=== PATIENT | female | born 1955 | race Caucasian/White ===

== ENCOUNTER → 2017-07-19 09:36 | Outpatient (CLI) | payer OTHER, SELFPAY ==
--- NOTE | 2017-07-19 09:37 | US_ITS ---
STUDY: ABDOMINAL ULTRASOUND REASON FOR EXAM: Female, 61 years old. Chronic right upper quadrant pain. Elevated liver function tests. TECHNIQUE: Transabdominal ultrasound was performed with real-time and static grewal scale imaging. TECHNICAL QUALITY: Adequate. COMPARISON: None. FINDINGS: Liver: The liver measures 17.9 cm. There is increased echogenicity consistent with fatty infiltration. The bile ducts are within normal limits. There is hepatic color flow. The direction of portal flow is hepatopetal. There is no demonstrated mass lesion. Portal vein measurement: Gallbladder: The patient is status post cholecystectomy. Common Bile Duct (C.B.D.): The common bile duct measures 5.5 mm. Pancreas: Normal size of the head, body and tail of the pancreas. There is normal echogenicity of the pancreas. There is no demonstrated pancreatic mass or cyst. Spleen: Normal size of the spleen. The spleen measures 9.1 cm x 4.9 cm x 3.9 cm. Right Kidney: Normal size of the right kidney. The right kidney measures 9.5 cm x 4.8 x 4.3 cm. Normal renal cortex. The right cortex measures 1.4 cm. There is no demonstrated renal mass or cyst. There is no right hydronephrosis. Left Kidney: Normal size of the left kidney. The left kidney measures 9.4 cm x 4.3 cm x 5.7 cm. Normal renal cortex. The left cortex measures 1.2 cm. There is no demonstrated renal mass or cyst. There is no left hydronephrosis. There are 2 nonobstructive left renal calculi measuring 4 mm. Aorta: Unremarkable. I.V.C.: The IVC is patent. There is no ascites. US/Abdomen Complete IMPRESSION: Fatty infiltration of the liver. Nonobstructive left intrarenal calculi. Electronically Signed: Francis Batista MD at 14:41 EST Tel [phone], Service support ,
== END ==
PROVIDERS: Family Provider Nurse Practitioner; PCP Nurse Practitioner; Visit Provider Nurse Practitioner
DX: R74.8 Abnormal levels of other serum enzymes (principal)
CPT/HCPCS: 76700

== ENCOUNTER 2017-09-05 13:21 | Emergency (ER) | payer OTHER, SELFPAY ==
[2017-09-05 13:22] VITALS: BP 142/74; PULSE 104; RESP 20; TEMP 36.9; O2SAT 99; BMI 27.8
--- NOTE | 2017-09-05 13:43 | CT_ITS ---
STUDY: CT ABDOMEN AND PELVIS WITHOUT CONTRAST REASON FOR EXAM: Female, 62 years old. Left flank pain. History of kidney stones. RADIATION DOSAGE (If Supplied By Facility): CTDIvol = ( 10.44 ) mGy, DLP = ( 487.75 ) mGycm TECHNIQUE: Transaxial images were obtained from the dome of the diaphragm to the symphysis pubis without oral contrast, and without intravenous contrast. Sagittal and coronal images were reconstructed. Individualized dose optimization techniques were used for this CT. COMPARISON: None. FINDINGS: The visualized lung bases are unremarkable. Coronary artery calcification. There is decreased attenuation of the liver consistent with steatosis. There are surgical clips in the gallbladder fossa consistent with a prior cholecystectomy. The common bile duct measures 1.3 cm. This may be related to the postcholecystectomy state. Normal spleen. Normal pancreas. Normal bilateral adrenal glands. Normal right kidney. Normal left kidney. Normal visualized stomach. Normal small intestine. There are multiple colonic diverticula consistent with diverticulosis. Scattered diverticula in the right hemicolon. The appendix is visualized and appears normal. There is diffuse atherosclerotic calcification of the abdominal aorta, without a demonstrated aneurysm. Normal inferior vena cava. Normal retroperitoneum. Normal urinary bladder. There is absence of the uterus consistent with a prior hysterectomy. There is a small umbilical hernia containing fat. There are degenerative changes of the visualized lumbar spine. CT/Abdomen/Pelvis without Cont IMPRESSION: Fatty infiltration of the liver. Mild dilatation of the common bile duct. Sigmoid diverticulosis. Scattered diverticula in the right hemicolon. Electronically Signed: Francis Batista MD at 14:58 EDT Tel [phone], Service support ,
[2017-09-05] MEDS: Ondansetron 4 MG/2 ML Vial IV (13:48)
[2017-09-05] MEDS: Morphine 4 MG/ML Syringe IV ×2 (13:48→15:01)
[2017-09-05 13:52] LABS: Mucous, Urine 0 SEEN /hpf (<or=2+); White Blood Cells 0 SEEN /hpf (0-5)
[2017-09-05 13:55] LABS: Absolute Neutrophil Count 8.5 X10^3/uL (2.0-7.7); Basophil# 0.06 X10^3/uL; Basophil% 0.4 % (0-1); Eosinophil# 0.17 X10^3/uL; Eosinophils% 1.3 % (0-5); Hematocrit 45.6 % (37-47); Hemoglobin 15.1 g/dl (12.0-15.0); Lymphocyte % 26.9 % (19-41); Mean Corp Hgb Conc 33.1 g/gl (32-36); Mean Corpuscular Hgb 30.1 pg (27.0-32.0); Mean Corpuscular Volume 90.8 fL (81-99); Mean Platelet Vol. 9.6 fl (6.2-12.0); Monocyte% 7.5 % (0-10); Neutrophil % 63.7 % (47-70); POSITIVE COUNT NO; POSITIVE DIFFERENTIAL NO; POSITIVE MORPHOLOGY NO; Platelet Count 367 K/mm3 (150-450); RBC Distribution Width CV 14.2 % (11.6-14.6); RBC Distribution Width SD 46.5 fl (35.1-43.9); Red Blood Count 5.02 M/mm3 (4.2-5.4); White Blood Count 13.4 K/mm3 (4.4-11.0)
[2017-09-05 13:59] LABS: Color, Urine Yellow (Yellow); Glucose, Dipstick Normal (Normal); Ketone-Dipstick Negative (Negative); Leukocyte Esterase-Dipstick Negative /ul (Negative); Nitrite-Dipstick Negative (Negative); Occult Blood-Urine 250 /ul (Negative); Protein-Dipstick Negative (Negative); Urine Bilirubin Dipstick Negative (Negative); Urine Clarity Sl. Cloudy (Clear); Urine Urobilinogen Normal (Normal)
[2017-09-05 14:10] LABS: Bacteria RARE /hpf (None Seen); Red Blood Cells-Urine > 100 SEEN /hpf (0-5); Squamous Epithelial Cells - UA 0-5 SEEN /hpf (5-10)
[2017-09-05 14:14] LABS: Anion Gap 10 (5-15); BUN 8 mg/dL (7-18); BUN/Creat Ratio 9.2 RATIO (10-20); Calcium,Total 9.5 mg/dL (8.5-10.1); Chloride 99 mmol/L (98-107); Creatinine, Serum 0.87 mg/dL (0.55-1.02); EST Glomerular Filtration Rate 70 mL/min (>60); Est Glom Filt Rate - Afr Amer 85 mL/min (>60); Glucose 95 mg/dL (74-106); Potassium 3.6 mmol/L (3.5-5.1); Sodium Level 135 mmol/L (136-145)
--- NOTE | 2017-09-05 15:04 | CT_ITS ---
STUDY: CT ABDOMEN WITH CONTRAST REASON FOR EXAM: Female, 62 years old. Questionable renal infarct. RADIATION DOSAGE (If Supplied By Facility): CTDIvol = ( 20.00 ) mGy, DLP = ( 1663.63 ) mGycm TECHNIQUE: Transaxial images were obtained post I.V. administration of 100 ml of Isovue 300 contrast, and without oral contrast. Sagittal and coronal images were reconstructed. Individualized dose optimization techniques were used for this CT. COMPARISON: Comparison is made with prior study done earlier in the day. FINDINGS: The visualized lung bases are unremarkable. The visualized portions of the heart are within normal limits. There is hepatomegaly with diffuse hepatic enlargement. There are surgical clips in the gallbladder fossa consistent with a prior cholecystectomy. The common bile duct measures 1.2 cm in transverse dimension. Normal spleen. Normal pancreas. Normal bilateral adrenal glands. Normal right kidney. Normal left kidney. Normal visualized stomach. Normal small intestine. Normal colon. The appendix is visualized and appears normal. There is diffuse atherosclerotic calcification of the abdominal aorta, without a demonstrated aneurysm. Normal inferior vena cava. There is borderline retroperitoneal lymphadenopathy with enlarged nodes no greater than 10mm in the short axis diameter. Normal abdominal wall. There are diffuse degenerative changes of the visualized lumbar spine. CT/Abdomen WITH IV Contrast IMPRESSION: Fatty infiltration of the liver. The kidneys are unremarkable. Electronically Signed: Francis Batista MD at 15:58 EDT Tel [phone], Service support ,
[2017-09-05 15:47] VITALS: BP 131/66; PULSE 96; RESP 16; O2SAT 97
--- NOTE | 2017-09-05 16:20 | ED.VISSUMM ---
- ER Visit Summary Date of Service: 09/05/17 Chief Complaint: Flank pain and hematuria History of Present Illness: The patient is a 62 F presenting for evaluation secondary to flank pain and hematuria. Patient states she does have an underlying history of kidney stones. Patient states that 2 months ago she started having left-sided flank pain. Patient states that it is a intermittent sharp stabbing pain in her left flank going into her left groin worse with some movement and has been associated with hematuria. Patient states that she had diarrhea associated with it last night. She denies any presence of fevers. Patient states that she did have an outpatient ultrasound recently that told her that she had 2 kidney stones on the left side that she was passing. Patient states that her pain simply is not resolved, and she is wishing for some sort of intervention at this point. She denies any radiation to her legs. She denies any bowel or bladder incontinence. Review of systems otherwise negative. Physical Examination: Vital signs within normal limits other than heart rate of 104. Uncomfortable female otherwise not in physiologic distress. Moist mucous membranes. No JVD. Heart tachycardic and regular. Lung sounds clear. Abdomen tender in the left lower quadrant without guarding or rebound tenderness. No palpable masses. Left-sided CVA tenderness to percussion no evidence of overlying vesicular rash. Remainder physical otherwise unremarkable. Test Results: CBC shows leukocytosis 13, chemistry shows normal renal function, urinalysis shows greater than 100 red blood cells without evidence of pyuria, crystals. CT abdomen and pelvis without contrast shows no acute pathology. CT abdomen with contrast shows normal blood flow to the kidneys and possible retroperitoneal lymphadenopathy. Emergency Department Course and Treatment: Patient presented secondary to flank pain and history of kidney stones in the past. She was administered Toradol morphine and Zofran. She continued to have pain. Initial workup including noncontrast CT showed no evidence of stones but did show evidence of greater than 100 red cells. Patient was significantly uncomfortable, so there was at least some concern for the possibility of a renal infarction. CT abdomen with IV contrast was performed and showed only evidence that the patient has mild lymphadenopathy in the retroperitoneum. I discussed patient's case with Dr. Marin. He recommended outpatient follow-up for the patient as she will require cystoscopy. Patient will be discharged with a short course of Percocet. Disposition: Discharge Impression: 1. Hematuria 2. Left flank pain This note was generated with Luis dictation software. It may contain incorrect words, spelling, and punctuation that were not noted in review of the chart prior to signing ED Disposition - Plan for ED Patient: Chief Complaint: Flank Pain Diagnosis: Flank pain, Hematuria Instructions: ED Flank Pain Uncertain Cause Prescriptions: Oxycodone HCl/Acetaminophen [Percocet 5/325] 1 tab PO Q6H PRN PRN 3 Days #12 tab PRN Reason: Pain Referrals: Jaime Marin MD [STAFF PHYSICIAN] - 3-5 Days
[2017-09-05 16:34] VITALS: BP 111/75; PULSE 71; RESP 16; O2SAT 98
== END 2017-09-05 16:35 | disposition home or self-care (01) ==
PROVIDERS: Emergency Provider Emergency Medicine; Family Provider Nurse Practitioner; PCP Nurse Practitioner
DX: R31.9 Hematuria, unspecified (principal); R10.32 Left lower quadrant pain; R11.2 Nausea with vomiting, unspecified; R19.7 Diarrhea, unspecified; R59.0 Localized enlarged lymph nodes; K21.9 Gastro-esophageal reflux disease without esophagitis; F32.9 Major depressive disorder, single episode, unspecified; F41.9 Anxiety disorder, unspecified; Z87.442 Personal history of urinary calculi; Z79.899 Other long term (current) drug therapy; Z72.0 Tobacco use
CPT/HCPCS: 74160; 74176; 80048; 81001; 85025; 96374; 96375; 99282; Q9967; A4216; J2405

== ENCOUNTER → 2018-09-13 | Outpatient (CLI) | payer OTHER, SELFPAY ==
[2018-09-13 10:35] LABS: Amphetamine Urine VISTA NEGATIVE (<1000 ng/mL); Barbiturate Urine VISTA NEGATIVE (< 200 ng/mL); Benzodiazepine Urine VISTA NEGATIVE (< 200 ng/mL); Cocaine Urine VISTA NEGATIVE (< 300 ng/mL); Ecstacy Urine VISTA NEGATIVE (< 500 ng/mL); Methadone Urine VISTA NEGATIVE (< 300 ng/mL); PCP Urine VISTA NEGATIVE (< 25 ng/mL); THC Urine VISTA NEGATIVE (< 50 ng/mL); Vista UDS pH Range 7
== END | disposition home or self-care (01) ==
PROVIDERS: Referring Provider Anesthesiology Pain Medicine; Visit Provider Anesthesiology Pain Medicine
DX: F11.20 Opioid dependence, uncomplicated (principal)
CPT/HCPCS: 80307

== ENCOUNTER → 2018-09-17 | Outpatient (CLI) | payer MEDICAID, SELFPAY ==
[2018-09-17 08:22] VITALS: BMI 24.9
[2018-09-17 12:18] LABS: Absolute Neutrophil Count 8.8 X10^3/uL (2.0-7.7); Basophil# 0.05 X10^3/uL; Basophil% 0.4 % (0-1); Eosinophil# 0.26 X10^3/uL; Eosinophils% 2.1 % (0-5); Hematocrit 47.4 % (37-47); Hemoglobin 15.5 g/dl (12.0-15.0); Lymphocyte % 20.5 % (19-41); Mean Corp Hgb Conc 32.7 g/gl (32-36); Mean Corpuscular Hgb 31.6 pg (27.0-32.0); Mean Corpuscular Volume 96.5 fL (81-99); Mean Platelet Vol. 11.1 fl (6.2-12.0); Monocyte# 0.61 X10^3/uL; Neutrophil # 8.75 X10^3/uL (2.7-7.7); Neutrophil % 71.8 % (47-70); Platelet Count 257 K/mm3 (150-450); RBC Distribution Width SD 48.4 fl (35.1-43.9); Red Blood Count 4.91 M/mm3 (4.2-5.4); White Blood Count 12.2 K/mm3 (4.4-11.0)
[2018-09-17 12:23] LABS: POSITIVE COUNT NO; POSITIVE DIFFERENTIAL NO; POSITIVE MORPHOLOGY NO
[2018-09-17 12:50] LABS: AST(SGOT) 30 U/L (15-37); Alanine Aminotransfer ALT/SGPT 39 U/L (13-56); Albumin, Serum 3.9 g/dL (3.2-5.0); Alkaline Phosphatase 144 U/L (45-117); Anion Gap 9 (5-15); BUN 16 mg/dL (7-18); BUN/Creat Ratio 18.1 RATIO (10-20); Calcium,Total 9.4 mg/dL (8.5-10.1); Chloride 108 mmol/L (98-107); Creatinine, Serum 0.89 mg/dL (0.55-1.02); EST Glomerular Filtration Rate 68 mL/min (>60); Est Glom Filt Rate - Afr Amer 83 mL/min (>60); Globulin 3.8 g/dL (2.2-4.2); Glucose 84 mg/dL (74-106); Potassium 4.5 mmol/L (3.5-5.1); Protein, Total 7.7 g/dL (6.4-8.2); Sodium Level 142 mmol/L (136-145)
== END | disposition home or self-care (01) ==
LOC: BIMLAB 08:43
PROVIDERS: PCP Internal Medicine; Visit Provider Internal Medicine
DX: K21.9 Gastro-esophageal reflux disease without esophagitis (principal); R03.0 Elevated blood-pressure reading, without diagnosis of hypertension; L65.9 Nonscarring hair loss, unspecified
CPT/HCPCS: 36415; 80053; 84443; 85025

== ENCOUNTER 2019-04-28 12:44 | Inpatient (IN) | payer OTHER, SELFPAY ==
[2018-11-29 16:04] VITALS: BMI 24.9
[2019-04-28] VITALS (10 sets, daily range): BP systolic 98–143; BP diastolic 47–89; PULSE 98–134; RESP 17–20; TEMP 36.8–37.3; O2SAT 96–100; BMI 24.0; BMI 24.7
--- NOTE | 2019-04-28 13:32 | RAD_ITS ---
STUDY: X-RAY CHEST REASON FOR EXAM: Female, 63 years old. Cough x 2 weeks. TECHNIQUE: PA and lateral views of the chest. COMPARISON: None. FINDINGS: Subsegmental density of atelectasis or infection seen in the posterior medial left lung base. The right lung is clear and moderately expanded. There is no demonstrated pleural abnormality. Normal size heart. Normal mediastinum and serafin. Normal visualized pulmonary arteries. There is atherosclerotic calcification of the aortic arch. There are multilevel degenerative changes of the visualized thoracic spine. 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 Surgical clips consistent with prior cholecystectomy seen in the right upper quadrant of the abdomen. RAD/Chest PA and Lateral IMPRESSION: Subsegmental atelectasis or infection in the posterior medial left base. Electronically Signed: Marcello Garcia MD at 14:49 EST , Service support ,
--- NOTE | 2019-04-28 13:32 | EKG12_ITS ---
Test Reason : COUGH Blood Pressure : / mmHG Vent. Rate : 126 BPM Atrial Rate : 126 BPM P-R Int : 172 ms QRS Dur : 086 ms QT Int : 288 ms P-R-T Axes : 073 023 074 degrees QTc Int : 417 ms Sinus tachycardia Otherwise normal ECG Confirmed by DON DALY, GILMER ([id number]), editorial specialist CARLTON FRANKLIN ([id number]) on 05/01/2019 11:36:23 AM Referred By: Lucy Hendrickson Confirmed By:GILMER OCHOA MD
--- NOTE | 2019-04-28 13:43 | NURSING ---
NO OLD EKGS
[2019-04-28 13:49] LABS: Absolute Lymphocyte Count 3.26 X10^3/uL (0.83-4.51); Basophil# 0.14 X10^3/uL; Basophil% 0.6 % (0-1); Eosinophil# 0.08 X10^3/uL; Eosinophils% 0.3 % (0-5); Hemoglobin 14.7 g/dL (12.0-15.0); Lymphocyte # 3.26 X10^3/ul (4.0); Lymphocyte % 13.4 % (19-41); Mean Corp Hgb Conc 34.2 g/dL (32-36); Mean Corpuscular Hgb 31.3 pg (27.0-32.0); Mean Corpuscular Volume 91.7 fL (81-99); Mean Platelet Vol. 9.4 fl (6.2-12.0); Monocyte# 1.77 X10^3/uL; Monocyte% 7.3 % (0-10); NRBC Flagged by Analyzer 0 % (0-5); Neutrophil # 18.96 X10^3/uL (2.7-7.7); Neutrophil % 77.8 % (47-70); POSITIVE DIFFERENTIAL YES; Platelet Count 379 K/mm3 (150-450); RBC Distribution Width CV 12.5 % (11.6-14.6); RBC Distribution Width SD 41.6 fl (35.1-43.9); Red Blood Count 4.69 M/mm3 (4.2-5.4); White Blood Count 24.4 K/mm3 (4.4-11.0)
[2019-04-28 13:53] LABS: Differential Indicated SCAN CRITERIA MET
[2019-04-28 13:59] LABS: International Normalized Ratio 1.1; Partial Thromboplast Time 31.5 Seconds (24.1-36.2); Prothrombin Time (Protime)PT. 13.8 SECONDS (11.7-14.9)
[2019-04-28 14:06] LABS: ALB/GLOB Ratio 0.8 RATIO (0.9-2.4); AST(SGOT) 50 U/L (15-37); Alanine Aminotransfer ALT/SGPT 49 U/L (13-56); Albumin, Serum 3.7 g/dL (3.2-5.0); Alkaline Phosphatase 196 U/L (45-117); Anion Gap 9 (5-15); BUN 7 mg/dL (7-18); BUN/Creat Ratio 8.7 RATIO (10-20); Calcium,Total 9.8 mg/dL (8.5-10.1); Chloride 109 mmol/L (98-107); EST Glomerular Filtration Rate 76 mL/min (>60); Est Glom Filt Rate - Afr Amer 92 mL/min (>60); Estimated Creatinine Clearance 62.15 ml/min; Globulin 4.7 g/dL (2.2-4.2); Glucose 110 mg/dL (74-106); Protein, Total 8.4 g/dL (6.4-8.2); Sodium Level 137 mmol/L (136-145)
[2019-04-28 14:15] LABS: Lactic Acid 1.2 mmol/L (0.4-1.9)
[2019-04-28 14:18] LABS: Differential Comment SCANNED; Platelet Estimate ADEQUATE (ADEQ)
[2019-04-28 14:19] LABS: Red Cell Morphology NORM C+C NORMAL (NORM C&C)
[2019-04-28] MEDS: oxyCODONE 5 MG Tablet PO ×2 (14:23→19:44)
[2019-04-28] MEDS: 0.9% Normal Saline 1,000 ML 999 ML IV ×2 (14:23→15:36)
--- NOTE | 2019-04-28 14:33 | ED.VIS.FLU ---
History of Present Illness Chief Complaint: Cough Informant: Patient Known exposure: No Onset: Days Context: Gradual Onset Timing: Continuous Associated Symptoms: Cough, Fever, Green sputum, Sore throat Chest Pain: Tightness Narrative: Patient is a 63-year-old female with history of chronic back pain, asthma and SLE presenting with worsening cough. Patient states she is been sick for the past 2 weeks. Yesterday she started having green sputum production. She was last few days she has had a fever with a high of 103.0. She cannot sleep because she is coughing so much. She is also feeling short of breath from this. She has some chest tightness associated with it and discomfort from all of her coughing. She has associated nasal congestion and ear pressure. She has associated sore throat. Yesterday with the shower she notes her hands and feet were blue. She has been alternating Tylenol and Motrin for her fever. She also states that she is having worsening of her pain because she ran out of her Percocet. She states she is in pain management. Patient denies any other complaints at this time. Past Medical History - Allergies and Home Meds Allergies/Adverse Reactions: Allergies celecoxib [From Celebrex] Allergy (Mild, Verified 04/28/19 12:47) unknown Primary Care Physician: [facility] [Other] Past Medical History: - - Lupus, hypertension, GERD, anxiety, migraines, fibromyalgia, insomnia, arthritis Surgical History: noncontributory Lives: With Family Smoking Status: Current every day smoker Drugs: None Review of Systems General: Reports: Chills, Fever, Malaise. Denies: Sweats Cardiovascular: Denies: Chest pain, Palpitations Respiratory: Reports: Dyspnea, Cough, Sputum. Denies: Dyspnea on exertion Gastrointestinal: Denies: Abdominal pain, Nausea, Vomiting, Diarrhea, Melena, Hematochezia Genitourinary: Denies: Dysuria, Hematuria, Frequency Musculoskeletal: Reports: Back pain Skin: Denies: Rash Neurological: Denies: Headache, Weakness, Numbness Physical Exam Vital Signs/Narrative: Vital Signs Temp Pulse Resp BP Pulse Ox 04/28/19 13:47 99.1 F 119 H 19 H 134/89 H 99 04/28/19 12:45 99 F 134 H 20 H 138/69 H 99 Inital Vital Signs reviewed: Yes - Tachycardic General: Well nourished, Well developed Head: Normocephalic, Atraumatic Eyes: Perrl, EOMI ENT: Moist mucous membranes, - - Fluid level behind left tympanic membrane, erythema of the oropharynx. Negative for: Sinus tenderness Neck: Supple, Nontender, No JVD Cardiovascular: Regular rhythm, No murmurs, Tachycardia Abdomen: Soft, Nontender, Nondistended, Normal bowel sounds Back: Nontender, Normal Inspection Extremities: Nontender, No edema Skin: Normal color, No rash Neurological: Alert, Oriented x3, Cranial nerves II-XII grossly intact, Normal Strength, Normal Sensation Psychological: Normal affect Diagnostic/Tx/Re-eval Chest X-Ray - ED: 2 View, Read by ED Physician, Read by Radiologist, - - Left posterior infiltrate Clinical Impression(s) from Imaging Studies Chest X-Ray 04/28/19 13:32 IMPRESSION: Subsegmental atelectasis or infection in the posterior medial left base. Electronically Signed: Marcello Garcia MD at 14:49 EST , Service support , Laboratory Data 04/28/19 04/28/19 04/28/19 13:40 13:40 13:40 WBC 24.4 H RBC 4.69 Hgb 14.7 Hct 43.0 MCV 91.7 MCH 31.3 MCHC 34.2 RDW Std Deviation 41.6 RDW Coeff of Otis 12.5 Plt Count 379 MPV 9.4 Immature Gran % (Auto) 0.600 Neut % (Auto) 77.8 H Lymph % (Auto) 13.4 L Hinds % (Auto) 7.3 Eos % (Auto) 0.3 Baso % (Auto) 0.6 Absolute Neuts (auto) 19.0 H Absolute Lymphs (auto) 3.26 Nucleated RBC % 0 Differential Comment SCANNED Platelet Estimate ADEQUATE RBC Morphology NORM C+C PT INR APTT Sodium 137 Potassium 4.0 Chloride 109 H Carbon Dioxide 19.0 L Anion Gap 9 BUN 7 Creatinine 0.80 Estim Creat Clear Calc 62.15 Est GFR (MDRD) Af Amer 92 Est GFR (MDRD) Non-Af 76 BUN/Creatinine Ratio 8.7 L Glucose 110 H Lactic Acid 1.2 Calcium 9.8 Total Bilirubin 0.50 AST 50 H ALT 49 Alkaline Phosphatase 196 H Total Protein 8.4 H Albumin 3.7 Globulin 4.7 H Albumin/Globulin Ratio 0.8 L 04/28/19 13:45 WBC RBC Hgb Hct MCV MCH MCHC RDW Std Deviation RDW Coeff of Otis Plt Count MPV Immature Gran % (Auto) Neut % (Auto) Lymph % (Auto) Hinds % (Auto) Eos % (Auto) Baso % (Auto) Absolute Neuts (auto) Absolute Lymphs (auto) Nucleated RBC % Differential Comment Platelet Estimate RBC Morphology PT 13.8 INR 1.1 APTT 31.5 Sodium Potassium Chloride Carbon Dioxide Anion Gap BUN Creatinine Estim Creat Clear Calc Est GFR (MDRD) Af Amer Est GFR (MDRD) Non-Af BUN/Creatinine Ratio Glucose Lactic Acid Calcium Total Bilirubin AST ALT Alkaline Phosphatase Total Protein Albumin Globulin Albumin/Globulin Ratio - Rhythm Strip Rhythm Strip: Sinus Tach Rate: 126 - EKG Initial EKG Interpretation: Sinus Tachycardia, - - Tachycardia at a rate of 126 Normal intervals Normal axis Normal ST segments Fluid Bolus: NS 2000ml - Medical Decision Making Patient is evaluated for cough, fever and upper respiratory symptoms. Patient is quite tachycardic on arrival. She is given a liter of IV fluids. She is afebrile. Tachycardia only improved mildly with fluids. Patient states she is having a lot of pain from her symptoms and is in pain management. She is given a dose of Percocet while in the emergency room. Patient is a significant leukocytosis of 24. Her lactate is normal. Remainder of her blood work is largely unremarkable. Flu swab is negative. Chest x-ray does show atelectasis versus infection of the posterior medial left base. Given patient's clinical picture I suspect it is an infiltrate. Patient started on Rocephin and Zithromax. Because of her persistent tachycardia and significant leukocytosis she will be admitted for IV antibiotics and further monitoring. Patient does meet criteria for sepsis however she does not have severe sepsis or septic shock. She does not require 30 cc/kg fluid bolus. Patient is agreeable to this plan. She is stable for the general medical floor at time of disposition. Patient is admitted I did add on a troponin to rule out myocarditis due to her tachycardia. I suspect her tachycardia is more from her pulmonary infection however. ED Disposition - Plan for ED Patient: Disposition: Acute Care Hospital [facility] [place] [facility] Diagnosis: Pneumonia, Sepsis Referrals: [facility] [Other]
--- NOTE | 2019-04-28 15:22 | HP.PCM_ITS ---
History of Present Illness Date of Admission: 04/28/19 Chief Complaint: fever, chills The patient is a 63 year old F with a past medical history as listed. She was admitted through the ED on 04/28/2019 with a complaint of fever, chills and a productive cough which has been going on for 2 weeks. Cough has been productive of greenish sputum and a couple of episodes and she admits to shortness of breath which is gradually worsened. She denies any chest pain or palpitations, dizziness or lightheadedness, abdominal pain, diarrhea vomiting. She denies any orthopnea or PND but admits to anorexia states is not been able to eat well for the last few days. Patient has a history of lupus but is not on prednisone or any other medications because she states they all have not worked for her. He states had similar symptoms but got better subsequently. Admission in the ED, vitals were significant for temperature of 99.1 Fahrenheit with pulse rate of 119 respiratory rate of 19 but when I was reviewing patient, respiratory rate was going up to the mid 20s. Blood pressure was 134/89. Chemistry was remarkable for bicarb of 19 but was otherwise normal. Lactic acid was 1.2. CBC showed white cell count of 24.4 was otherwise unremarkable. EKG showed sinus tachycardia and chest x-ray showed subsegmental density of atelectasis or infection in the posterior medial left lung base with normal right lung. She has been admitted to be managed for sepsis due to community-acquired pneumonia. [] Past Medical History Past Medical History (Chronic Problems): Chronic Problems (Last Reviewed 11/29/18 @ 16:02 by Nimco Jimenes) Hypertension (Chronic) Lupus (Chronic) GERD (gastroesophageal reflux disease) (Chronic) Anxiety and depression (Chronic) Asthma (Chronic) Migraine (Chronic) Fibromyalgia (Chronic) Arthritis (Chronic) Neck pain (Chronic) Medical History: Medical History (Last Reviewed 11/29/18 @ 16:02 by Nimco Jimenes) Lupus (Chronic) M32.9 GERD (gastroesophageal reflux disease) (Chronic) K21.9 Anxiety and depression (Chronic) F41.9, F32.9 Asthma (Chronic) J45.909 Back pain (Acute) M54.9 Migraine (Chronic) G43.909 Fibromyalgia (Chronic) M79.7 Arthritis (Chronic) M19.90 History of kidney stones Z87.442 Seasonal allergies J30.2 H/O: hysterectomy Z98.890, Z90.710 Allergies celecoxib [From Celebrex] Allergy (Mild, Verified 04/28/19 12:47) unknown Home Medications: Ambulatory Orders Medication Instructions Recorded baclofen 10 mg tablet 10 mg PO QHS 09/17/18 morphine ER 15 mg tablet,extended 15 mg PO Q12H tab 09/17/18 release omeprazole 20 mg capsule,delayed 20 mg PO DAILY 09/17/18 release oxycodone-acetaminophen 5 mg-325 1 tab PO BID PRN tab 09/17/18 mg tablet Amitriptyline HCl [Elavil] 25 mg PO QHS 04/28/19 Surgical History: Surgical History (Last Reviewed 11/29/18 @ 16:02 by Nimco Jimenes) History of dental surgery Z92.89 History of hysterectomy Z90.710 History of tonsillectomy Z90.89 History of tonsillectomy Z98.890, Z90.89 S/P appendectomy Z90.49 S/P cholecystectomy Z90.49 Surgical History: noncontributory Psychiatric History: Anxiety METHODOLOGIST History: No pertinent METHODOLOGIST history Lives: With Family Smoking Status: Current every day smoker Tobacco Use: Cigarettes Alcohol: Heavy Drugs: None - *Family History Maternal Family History: Family History (Last Reviewed 11/29/18 @ 16:02 by Nimco Jimenes) Other Arthritis Asthma CVA (cerebral vascular accident) Cancer Diabetes Heart disease Hypertension Lupus Migraines Myocardial infarction Review of Systems Constitutional: Reports: Anorexia, Chills, Fever, Malaise, Weakness, Fatigue Eyes: Denies: Blurred vision HEENT: Denies: Head Aches, Sinus Congestion, Sinus Drainage Cardiovascular: Denies: Chest Pain, Edema, Heaviness, Light Headedness, Orthopnea, Palpitations, Paroxysmal Noc. Dyspnea Respiratory: Reports: Cough, Shortness of Breath, Shortness of breath at rest, Sputum production. Denies: Pleuritic Pain, Shortness of breath upon exertion, Wheezing Gastrointestinal: Denies: Abdominal Pain, Nausea, Vomiting Genitourinary: Denies: Dysuria Musculoskeletal: Denies: Joint Pain, Joint Tenderness Skin: Denies: Rash, Wounds Neurological: Denies: Numbness, Tingling, Focal weakness Psychiatric: Denies: Anxiety, Depression, Homicidal Ideations, Suicidal Ideations Hematologic/ Lymphatic: Denies: Easy Bruising, Easy Bleeding VTE Information - Inpt Only VTE Present on Admission: No VTE Pharm Prophylaxis ordered?: Yes Patient Problems: Active and Suspected Problems (Last Reviewed 11/29/18 @ 16:02 by Nimco Jimenes) Pneumonia (Acute) Sepsis (Acute) - Physical Exam Vitals/I&O's: Vital Signs Temp Pulse Resp BP Pulse Ox 99.1 F 119 H 19 H 134/89 H 99 04/28/19 13:47 04/28/19 13:47 04/28/19 13:47 04/28/19 13:47 04/28/19 13:47 Oxygen Delivery Method Room Air Weight: 140 lb Body Mass Index (BMI) 24.0 General: Alert, Oriented x3, Cooperative, No apparent distress, Lethargic HEENT: Atraumatic, PERRLA, EOMI, Normocephalic Oral: Dry Mucosa Neck: Supple, No JVD, Negative Carotid Bruits Lungs: Tachypneic, - - decreased breath sounds in left lower lung dalal, with coarse crackles in same region. on room air. Cardiovascular: Normal S1, Normal S2, No murmurs, Tachycardic Abdomen: Bowel Sounds Present, Soft, Non Tender, Non-Distended, No Hepato- splenomegaly Extremities: No clubbing, No cyanosis, No edema, Capillary Refill Less than 3 Seconds Skin: No rashes, No breakdown Musculoskeletal: No Tenderness to Palpation of Joints or Extremities Lymphatic: No Cervical, Supraclavicular, or Inguinal Adenopathy Neurological: Cranial nerves II-XII grossly intact, Neuro grossly intact, Motor Exam 5/5 strength throughout Psych/Mental Status: Normal Affect, Appropriate, Alert and oriented to time, place, person, mood and affect Microbiology Past 72 Hours 04/28/19 13:51 Mucosa - Nose Influenza Types A,B Direct FA (LYLE) - Final Laboratory Results 04/28/19 13:40: WBC 24.4 H, RBC 4.69, Hgb 14.7, Hct 43.0, MCV 91.7, MCH 31.3, MCHC 34.2, RDW Std Deviation 41.6, RDW Coeff of Otis 12.5, Plt Count 379, MPV 9.4, Immature Gran % (Auto) 0.600, Neut % (Auto) 77.8 H, Lymph % (Auto) 13.4 L, [place] % (Auto) 7.3, Eos % (Auto) 0.3, Baso % (Auto) 0.6, Absolute Neuts (auto) 19.0 H, Absolute Lymphs (auto) 3.26, Nucleated RBC % 0, Differential Comment SCANNED, Platelet Estimate ADEQUATE, RBC Morphology NORM C+C 04/28/19 13:40: Sodium 137, Potassium 4.0, Chloride 109 H, Carbon Dioxide 19.0 L , Anion Gap 9, BUN 7, Creatinine 0.80, Estim Creat Clear Calc 62.15, Est GFR (MDRD) Af Amer 92, Est GFR (MDRD) Non-Af 76, BUN/Creatinine Ratio 8.7 L, Glucose 110 H, Calcium 9.8, Total Bilirubin 0.50, AST 50 H, ALT 49, Alkaline Phosphatase 196 H, Total Protein 8.4 H, Albumin 3.7, Globulin 4.7 H, Albumin/Globulin Ratio 0.8 L 04/28/19 13:40: Lactic Acid 1.2 04/28/19 13:45: PT 13.8, INR 1.1, APTT 31.5 Diagnostic Data Chest X-Ray 04/28/19 13:32 IMPRESSION: Subsegmental atelectasis or infection in the posterior medial left base. Electronically Signed: Marcello Garcia MD at 14:49 EST , Service support , Current Medications Sodium Chloride () 1,000 mls @ 999 mls/hr IV .Q1H1M ONE Stop: 04/28/19 16:17 Ceftriaxone Sodium (Rocephin) 1 gm in 50 mls @ 100 mls/hr IV X1 ONE Stop: 04/28/19 15:47 Azithromycin 500 mg/ Dextrose 255 mls @ 250 mls/hr IV X1 ONE Stop: 04/28/19 16:19 Assessment/Plan All Active Problems (Last Reviewed 11/29/18 @ 16:02 by Nimco Jimenes) Pneumonia (Acute) Sepsis (Acute) Back pain (Acute) Insomnia disorder (Acute) Grieving (Acute) 63-year-old female admitted with a complaint of fever, cough and shortness of breath. 1. Sepsis due to community acquired pneumonia * SIRS criteria is 3/4 (tachycardia, tachypnea and leucocytosis); of note, she does have chronic sinus tachycardia, but I am not sure how fast her HR usually is. * CBC shows wbc of 24, and CXR showed subsegmental atelectasis or infection in posterior medial left base * admit to PCU with telemetry * hydrate with IVF NS ~ 150cc/hr * get blood cultures, sputum cultures, urine for strep and legionella, and respiratory panel. Flu swab was negative * started on IV ceftriaxone and azithromycin in the ED; will continue * tylenol for fever and headache * 2. Community acquired pneumonia: as under 1. 3. Sinus tachycardia * Does have a history of sinus tachycardia per review of her PCPs notes. She was started on propranolol for hypertension and sinus tachycardia. He does appear from records that her heart rate was not well controlled though blood pressure control improved. She did admit to taking her propranolol inconsistently, per PCP records from November 29, 2018, due to concerns about drowsiness. * TSH checked on 09/17/18 was 1.2 * I think it is reasonable to request a 2D echo to assess cardiac status in light of persistent tachycardia. Review of records show that she has never had a 2D echo before and patient affirms this. * Continue propranolol. * 4. Depression and anxiety: * On citalopram and Lorazepam as needed. Also on BuSpar. * As per PCP note, patient was started on BuSpar in the bid to taper off lorazepam as patient had requested for increased dosage of lorazepam. * Will need follow-up with PCP upon discharge for lorazepam to be tapered off as needed. * 5. History of SLE and fibromyalgia: * Not on any medication for her lupus/states she is tried other medications and none of them seem to have worked for her. * Denies being on steroids at home. * will monitor * 6. GERD: on pantoprazole DVT prophylaxis: lovenox Code status: full code * Patient and her counseled extensively about different types of CODE STATUS including full code, DNR CCA and DNR CCA. Patient elects to be full code. Total [id number] time 16 minutes. Code Visit Inpatient E&M: 65240 Init Hosp L3 Procedures: 32547 Advncd Care Plan 30 Min
--- NOTE | 2019-04-28 15:22 | NURSING ---
PCU SEPSIS DUE TO LINDSAY KERR
[2019-04-28] MEDS: Ketorolac 15 MG/ML Vial IV (15:36)
[2019-04-28] MEDS: Ceftriaxone 1 GM/50 ML BAG IV (15:37)
[2019-04-28] MEDS: morphine SR 15 MG Tablet PO (17:13)
[2019-04-28] MEDS: 0.9% Normal Saline 1,000 ML 150 ML IV (17:31)
[2019-04-28] MEDS: guaiFENesin 1,200 MG Tablet 1200 MG PO (19:44)
[2019-04-28] MEDS: Acetaminophen 325 MG Tablet 650 MG PO (19:45)
[2019-04-28] MEDS: Baclofen 10 MG Tablet PO (22:09)
[2019-04-28] MEDS: Amitriptyline 25 MG Tablet PO (22:09)
[2019-04-29] VITALS (13 sets, daily range): BP systolic 93–110; BP diastolic 52–64; PULSE 98–128; RESP 18; TEMP 36.9–37.3; O2SAT 98
[2019-04-29] MEDS: 0.9% Normal Saline 1,000 ML 150 ML IV ×2 (00:12→06:36)
[2019-04-29] MEDS: morphine SR 15 MG Tablet PO ×2 (04:14→17:00)
--- NOTE | 2019-04-29 05:22 | NURSING ---
Report given to Alanis bridges at this time.
--- NOTE | 2019-04-29 05:55 | ECHOD_ITS ---
Reason For Study: Arrhythmia Left Ventricle Normal LV size. Left ventricular systolic function is normal. The estimated ejection fraction is 65 %. Stage 2 diastolic dysfunction. No regional wall motion abnormalities noted. Right Ventricle Normal RV size. Normal systolic function. Atria Normal left atrium. Normal right atrium. Mitral Valve Normal mitral valve. Tricuspid Valve Normal tricuspid valve. Aortic Valve Normal aortic valve. Trisinus/trileaflet aortic valve. Pulmonic Valve Normal pulmonic valve. Great Vessels Normal aortic root. The pulmonary artery is normal size. Normal inferior vena cava. Pericardium/Pleural No pericardial effusion. MMode/2D Measurements & Calculations LVIDd: 3.7 cm IVSd: 1.1 cm Ao root diam: 2.7 cm LVIDs: 2.2 cm LVPWd: 1.00 cm FS: 41.5 % LAV(MOD-bp): 39.2 ml LA A4 area: 14.3 cm2 LA dimension(2D): 3.2 cm LAV(MOD-bp) Indexed: 23.0 ml/m2 LAV(MOD-sp2): 45.8 ml LAV(MOD-sp4): 35.7 ml RA A4 area: 9.4 cm2 Doppler Measurements & Calculations MV E max ruiz: 92.2 cm/sec Lat Peak E' Ruiz: 11.7 cm/sec Med Peak E' Ruiz: 10.8 cm/sec MV A max ruiz: 76.6 cm/sec E/E' lat: 7.9 E/E' med: 8.6 MV E/A: 1.2 Ao V2 max: 115.2 cm/sec LV V1 max: 87.3 cm/sec PA V2 max: 89.9 cm/sec Ao max P.3 mmHg LV V1 max P.0 mmHg TR max ruiz: 220.9 cm/sec TR max P.5 mmHg Interpretation Summary Normal LV size. Left ventricular systolic function is normal. The estimated ejection fraction is 65 %. Stage 2 diastolic dysfunction. Structurally normal valves. Ordering Physician: Lucy Hendrickson Referring Physician: Lucy Hendrickson Performed By: Chiqui Knott, JOSEPH, RVT
[2019-04-29] MEDS: oxyCODONE 5 MG Tablet PO ×3 (06:42→20:32)
[2019-04-29] MEDS: Acetaminophen 325 MG Tablet 650 MG PO ×3 (06:42→20:32)
[2019-04-29 07:38] LABS: Absolute Lymphocyte Count 2.47 X10^3/uL (0.83-4.51); Absolute Neutrophil Count 11.8 X10^3/uL (2.0-7.7); Basophil% 0.6 % (0-1); Eosinophil# 0.28 X10^3/uL; Eosinophils% 1.8 % (0-5); Hemoglobin 11.5 g/dL (12.0-15.0); Lymphocyte # 2.47 X10^3/ul (4.0); Lymphocyte % 15.7 % (19-41); Mean Corp Hgb Conc 32.9 g/dL (32-36); Mean Corpuscular Hgb 31.2 pg (27.0-32.0); Mean Corpuscular Volume 94.9 fL (81-99); Mean Platelet Vol. 10.2 fl (6.2-12.0); Monocyte# 1.02 X10^3/uL; Monocyte% 6.5 % (0-10); NRBC Flagged by Analyzer 0 % (0-5); Neutrophil # 11.79 X10^3/uL (2.7-7.7); Neutrophil % 74.9 % (47-70); Platelet Count 333 K/mm3 (150-450); RBC Distribution Width CV 12.9 % (11.6-14.6); RBC Distribution Width SD 44.7 fl (35.1-43.9); Red Blood Count 3.69 M/mm3 (4.2-5.4); White Blood Count 15.7 K/mm3 (4.4-11.0)
--- NOTE | 2019-04-29 08:04 | PCM.PROGNOTE ---
Patient Problems: Active and Suspected Problems (Last Updated 04/29/19 @ 08:06 by Colt Castillo MD) Pneumonia (Acute) Sepsis (Acute) Subjective: Chief complaint: Follow-up after admission for sepsis due to community-acquired pneumonia and sinus tachycardia. Patient seen and examined. No acute events overnight. Patient still complaining of cough which has been persistent for more than 2 weeks, mostly dry cough. She has been coughing up with taking normal breathing with chest discomfort. Denied chest pain. She was asking to increase her chronic pain medications because of her chronic neck and back pain as well as fibromyalgia. She has been afebrile, tachycardic, blood pressure stable, pulse ox is maintained on room air. - Physical Exam Vitals/I&O's: Vital Signs Temp Pulse Resp BP Pulse Ox 99.1 F 128 H 18 108/64 98 04/29/19 04:08 04/29/19 06:44 04/29/19 04:08 04/29/19 04:08 04/29/19 04:08 Oxygen Delivery Method Room Air Weight: 144 lb 2.917 oz Body Mass Index (BMI) 24.7 Intake and Output for Last 24 Hours 04/27/19 04/28/19 04/29/19 23:59 23:59 23:59 Intake Total 3285 / 3285 2320 / 2320 Balance 3285 / 3285 2320 / 2320 General: Alert, Oriented x3, Cooperative, No apparent distress HEENT: Atraumatic, PERRLA, EOMI, Normocephalic Oral: Moist Mucosa, No Gingival or Mucosal Lesions/ Ulcerations Neck: Supple, No JVD, Negative Carotid Bruits, Trachea Midline, Thyroid Normal Size and Texture Lungs: No rales, Diminished, Rhonchi, Wheezes, - - Decreased breath sounds bilateral, bilateral faint expiratory wheezes, rhonchi. Cardiovascular: Regular rate, Regular Rhythm, Normal S1, Normal S2, PMI Normal, Tachycardic Abdomen: Bowel Sounds Present, Soft, Non Tender, Non-Distended, No Hepato-splenomegaly Extremities: No clubbing, No cyanosis, No edema Skin: No rashes, No breakdown Lymphatic: No Cervical, Supraclavicular, or Inguinal Adenopathy Neurological: Cranial nerves II-XII grossly intact, Motor Exam 5/5 strength throughout Psych/Mental Status: Normal Affect, Appropriate, Alert and oriented to time, place, person, mood and affect Microbiology Past 72 Hours 04/28/19 13:51 Mucosa - Nose Influenza Types A,B Direct FA (LYLE) - Final Laboratory Results 04/28/19 13:40: WBC 24.4 H, RBC 4.69, Hgb 14.7, Hct 43.0, MCV 91.7, MCH 31.3, MCHC 34.2, RDW Std Deviation 41.6, RDW Coeff of Otis 12.5, Plt Count 379, MPV 9.4, Immature Gran % (Auto) 0.600, Neut % (Auto) 77.8 H, Lymph % (Auto) 13.4 L, [place] % (Auto) 7.3, Eos % (Auto) 0.3, Baso % (Auto) 0.6, Absolute Neuts (auto) 19.0 H, Absolute Lymphs (auto) 3.26, Nucleated RBC % 0, Differential Comment SCANNED, Diff Path Review September, Platelet Estimate ADEQUATE, RBC Morphology NORM C+C 04/28/19 13:40: Sodium 137, Potassium 4.0, Chloride 109 H, Carbon Dioxide 19.0 L, Anion Gap 9, BUN 7, Creatinine 0.80, Estim Creat Clear Calc 62.15, Est GFR (MDRD) Af Amer 92, Est GFR (MDRD) Non-Af 76, BUN/Creatinine Ratio 8.7 L, Glucose 110 H, Calcium 9.8, Total Bilirubin 0.50, AST 50 H, ALT 49, Alkaline Phosphatase 196 H, Total Protein 8.4 H, Albumin 3.7, Globulin 4.7 H, Albumin/Globulin Ratio 0.8 L 04/28/19 13:40: Lactic Acid 1.2 04/28/19 13:40: Troponin I < 0.015 04/28/19 13:45: PT 13.8, INR 1.1, APTT 31.5 04/29/19 06:34: WBC 15.7 H, RBC 3.69 L, Hgb 11.5 L, Hct 35.0 L, MCV 94.9, MCH 31.2, MCHC 32.9, RDW Std Deviation 44.7 H, RDW Coeff of Otis 12.9, Plt Count 333, MPV 10.2, Immature Gran % (Auto) 0.500, Neut % (Auto) 74.9 H, Lymph % (Auto) 15.7 L, [place] % (Auto) 6.5, Eos % (Auto) 1.8, Baso % (Auto) 0.6, Absolute Neuts (auto) 11.8 H, Absolute Lymphs (auto) 2.47, Nucleated RBC % 0 04/29/19 06:34: Sodium Pending, Potassium Pending, Chloride Pending, Carbon Dioxide Pending, Anion Gap Pending, BUN Pending, Creatinine Pending, Est GFR (MDRD) Af Amer Pending, Est GFR (MDRD) Non-Af Pending, BUN/Creatinine Ratio Pending, Glucose Pending, Calcium Pending Clinical Impression(s) from Imaging Studies Chest X-Ray 04/28/19 13:32 IMPRESSION: Subsegmental atelectasis or infection in the posterior medial left base. Electronically Signed: Marcello Garcia MD at 14:49 EST , Service support , Current Medications Acetaminophen (Tylenol) 650 mg PO Q6H PRN PRN PRN Reason: Pain Score 1-3/Temp > 100.7 F Last Admin: 04/29/19 06:42 Dose: 650 mg Documented by: Albuterol/Ipratropium (Duoneb) 3 ml INHALATION Q6H.RT DAVE Amitriptyline HCl (Elavil) 25 mg PO QHS [facility] Last Admin: 04/28/19 22:09 Dose: 25 mg Documented by: Baclofen (Lioresal) 10 mg PO QHS [facility] Last Admin: 04/28/19 22:09 Dose: 10 mg Documented by: Dextrose (D50w Syringe) 0 gm IV X1 PRN; Protocol PRN Reason: Hypoglycemia Enoxaparin Sodium (Lovenox) 40 mg SC DAILY [facility] Fluticasone Propionate (Flonase Nasal [place]) 2 spray NASAL DAILY DAVE Glucagon () 1 mg IM .X1 PRN PRN Reason: Hypoglycemia Sodium Chloride () 1,000 mls @ 100 mls/hr IV .Q10H DAVE Stop: 04/29/19 21:57 Last Admin: 04/29/19 06:36 Dose: 150 mls/hr Documented by: Ceftriaxone Sodium 2 gm/ (Sodium Chloride) 50 mls @ 100 mls/hr IV Q24 [facility] Azithromycin 500 mg/ Dextrose 255 mls @ 250 mls/hr IV Q24 [facility] Sodium Chloride () 250 mls @ 15 mls/hr IV .[id number] PRN PRN Reason: Saline Flush Morphine Sulfate (Ms Contin) 15 mg PO 0500,1700 [facility] Last Admin: 04/29/19 05:14 Dose: Not Given Documented by: Ondansetron HCl (Zofran) 4 mg IV Q8H PRN PRN PRN Reason: NAUSEA/VOMITING Oxycodone HCl (Oxyir) 5 mg PO Q6H PRN PRN PRN Reason: Pain Score 1-10/10 Pantoprazole Sodium (Protonix) 20 mg PO DAILY [facility] Pseudoephedrine HCl (Sudafed) 30 mg PO Q6H PRN PRN PRN Reason: Cough congestion Sodium Chloride () 10 - 40 ml IV UD PRN PRN Reason: SALINE FLUSH Medical Necessity - Tobacco Use Smoking Status: Current every day smoker Tobacco Use: Cigarettes Assessment/Plan All Active Problems (Last Updated 04/29/19 @ 08:06 by Colt Castillo MD) Pneumonia (Acute) Sepsis (Acute) This is a 63 years old female patient presented to the emergency because of productive cough with fever and she was found to have sepsis secondary to community-acquired pneumonia. #1 acute community-acquired pneumonia/sepsis: She is on IV Rocephin and Zithromax. She has been afebrile, WBC is trending down. She is tachycardic which is chronic, blood pressure is borderline, pulse ox is maintained on room air. Patient still symptomatic with cough and congestion. Nasal swab for influenza a and B were negative. Respiratory panel for viruses were negative as well. Blood and urine cultures are pending. Plan: Continue antibiotics, start Sudafed, DuoNeb every 6 hours, incentive spirometer, repeat CBC tomorrow. #2 sinus tachycardia: This is chronic and likely exacerbated by infection and sepsis. Heart rate has been around 1-10, blood pressure is stable. Patient has been on propanolol PRN. EKG revealed tachycardia. 2D echocardiogram ordered. TSH was recently normal. Plan to resume propanolol if blood pressure allows. #3 SLE/fibromyalgia: Not on treatment for now, she is only on symptomatic treatment for pain with amitriptyline, MS Contin and Percocet as well as baclofen. #4 anxiety/depression: Currently, she is not on any medication. Recommend follow-up with PCP as outpatient. #5 chronic neck/back pain: Continue Ms. Contin twice daily. Patient requested more pain medications. Will change OxyIR to 5 mg every 6 as needed. #6 GERD: Continue PPI. #7 DVT prophylaxis: Subcu Lovenox. This note was generated with [employer] dictation software. It may contain incorrect words, spelling, and punctuation that were not noted in checking the note before signing. Code Visit Inpatient E&M: 47465 Subs Hosp L2
[2019-04-29 08:10] LABS: Anion Gap 7 (5-15); BUN 7 mg/dL (7-18); BUN/Creat Ratio 9.3 RATIO (10-20); Calcium,Total 8.7 mg/dL (8.5-10.1); Chloride 113 mmol/L (98-107); Creatinine, Serum 0.75 mg/dL (0.55-1.02); EST Glomerular Filtration Rate 83 mL/min (>60); Est Glom Filt Rate - Afr Amer 100 mL/min (>60); Glucose 91 mg/dL (74-106); Potassium 3.5 mmol/L (3.5-5.1); Sodium Level 140 mmol/L (136-145)
[2019-04-29] MEDS: Enoxaparin 40 MG/0.4 ML Syringe SC (09:35)
[2019-04-29] MEDS: Pantoprazole Sodium 20 MG Tablet PO (09:35)
[2019-04-29] MEDS: Fluticasone 0.05% 1 SPRAY NASAL.SRY 2 SPRAY NASAL (09:42)
--- NOTE | 2019-04-29 13:21 | CASEMGMT ---
RN CM Assessment Introduced role of RN CM to patient.? Patient is alert, oriented and able?to participate in RN CM Assessment. ?Care providers, pharmacy, and demographics verified. Presentation: Fever, Chills, Productive cough x2 weeks Admit Dx: Sepsis D/t PNA Re-Admit: No Barriers/Issues: None PCP: Pasquale Lamas PA (Has 1st appointment this week) Specialists: Perri- Dr Brown Pref[facility] Insurance: [employer] Rx Benefit: Yes? ?LNOK: Inocente Major LW/HPOA: None, states would like to complete this admission, Yeni made aware. Living Arrangements:? Lives with her , Dtr/son in law/14yo gnddtr have been living there since October until they find a home. ADL?s: Independent with ambulation and ADLs Transportation: Both patient and drive DME: None. States does use her husbands Glucometer when she feels like her blood sugar is low. HHC: None SNF: None Goal: Home and does not think will have any needs. Denies any issues, concerns, or questions with Dc planning at this time. Aware CM remains available for any emerging needs. DC PLAN: Home with no anticipated needs identified at this time. MAK Brooks
[2019-04-29] MEDS: Ipratropium/Albuterol Sulfate 3 ML AMPUL.NEB INHALATION (13:35)
--- NOTE | 2019-04-29 14:30 | CASEMGMT ---
Social Work Met with pt and spouse in room and discussed advance directives. SW assisted pt in completing both HCPOA and LW and pt named her spouse Inocente as HCPOA. Original given to pt and copy placed in pt chart. TONA Francisco
[2019-04-29] MEDS: Amitriptyline 25 MG Tablet PO (20:32)
[2019-04-29] MEDS: Baclofen 10 MG Tablet PO (20:32)
[2019-04-30] VITALS (11 sets, daily range): BP systolic 93–146; BP diastolic 57–85; PULSE 81–108; RESP 16–20; TEMP 36.6–37.1; O2SAT 96–100
[2019-04-30] MEDS: morphine SR 15 MG Tablet PO ×2 (04:03→16:12)
[2019-04-30] MEDS: Ipratropium/Albuterol Sulfate 3 ML AMPUL.NEB INHALATION ×3 (04:06→19:40)
[2019-04-30] MEDS: 0.9% Saline Lock 10 ML Syringe IV ×2 (04:41→04:43)
[2019-04-30 06:40] LABS: Absolute Lymphocyte Count 2.28 X10^3/uL (0.83-4.51); Basophil# 0.08 X10^3/uL; Basophil% 0.5 % (0-1); Eosinophil# 0.29 X10^3/uL; Hematocrit 36.5 % (37-47); Hemoglobin 11.9 g/dL (12.0-15.0); Lymphocyte # 2.28 X10^3/ul (4.0); Lymphocyte % 15.6 % (19-41); Mean Corp Hgb Conc 32.6 g/dL (32-36); Mean Corpuscular Hgb 30.7 pg (27.0-32.0); Mean Corpuscular Volume 94.3 fL (81-99); Mean Platelet Vol. 10.1 fl (6.2-12.0); Monocyte% 6.2 % (0-10); NRBC Flagged by Analyzer 0 % (0-5); Neutrophil # 10.96 X10^3/uL (2.7-7.7); Neutrophil % 75.2 % (47-70); Platelet Count 355 K/mm3 (150-450); RBC Distribution Width CV 12.8 % (11.6-14.6); RBC Distribution Width SD 44.6 fl (35.1-43.9); Red Blood Count 3.87 M/mm3 (4.2-5.4); White Blood Count 14.6 K/mm3 (4.4-11.0)
[2019-04-30 07:52] LABS: Pathologist Review Reviewed
--- NOTE | 2019-04-30 08:02 | PCM.PROGNOTE ---
Patient Problems: Active and Suspected Problems (Last Updated 04/29/19 @ 08:06 by Colt Castillo MD) Pneumonia (Acute) Sepsis (Acute) Subjective: Chief complaint: Follow-up after admission for sepsis due to community-acquired pneumonia and sinus tachycardia. Patient seen and examined. No acute events overnight. She is still complaining of cough up on taking a deep breath, minimal sputum but it is improving. She has been afebrile. Heart rate has been around 100, blood pressure stable, pulse ox is 100% on room air. - Physical Exam Vitals/I&O's: Vital Signs Temp Pulse Resp BP Pulse Ox 97.8 F 108 H 20 H 141/67 H 100 04/30/19 04:05 04/30/19 07:23 04/30/19 04:07 04/30/19 04:05 04/30/19 04:05 Oxygen Delivery Method Room Air Weight: 144 lb 2.917 oz Body Mass Index (BMI) 24.7 Intake and Output for Last 24 Hours 04/28/19 04/29/19 04/30/19 23:59 23:59 23:59 Intake Total 3285 / 3285 4270 / 4270 240 / 240 Balance 3285 / 3285 4270 / 4270 240 / 240 General: Alert, Oriented x3, Cooperative, No apparent distress HEENT: Atraumatic, PERRLA, EOMI, Normocephalic Oral: Moist Mucosa, No Gingival or Mucosal Lesions/ Ulcerations Neck: Supple, No JVD, Negative Carotid Bruits, Trachea Midline, Thyroid Normal Size and Texture Lungs: Diminished, Rhonchi, - - Decreased breath sounds bilateral, scattered rhonchi, occasional wheezes. Cardiovascular: Regular rate, Regular Rhythm, Normal S1, Normal S2, PMI Normal Abdomen: Bowel Sounds Present, Soft, Non Tender, Non-Distended, No Hepato-splenomegaly Extremities: No clubbing, No cyanosis, No edema Skin: No rashes, No breakdown Lymphatic: No Cervical, Supraclavicular, or Inguinal Adenopathy Neurological: Cranial nerves II-XII grossly intact, Neuro grossly intact Psych/Mental Status: Normal Affect, Appropriate, Alert and oriented to time, place, person, mood and affect Microbiology Past 72 Hours 04/28/19 17:00 Mucosa - Nose Respiratory Panel (PCR) - Final 04/28/19 13:51 Mucosa - Nose Influenza Types A,B Direct FA ([facility]) - Final Laboratory Results 04/28/19 13:40: Diff Path Review Reviewed 04/29/19 06:34: Sodium 140, Potassium 3.5, Chloride 113 H, Carbon Dioxide 20.0 L, Anion Gap 7, BUN 7, Creatinine 0.75, Estim Creat Clear Calc 66.30, Est GFR (MDRD) Af Amer 100, Est GFR (MDRD) Non-Af 83, BUN/Creatinine Ratio 9.3 L, Glucose 91, Calcium 8.7 04/30/19 06:00: WBC 14.6 H, RBC 3.87 L, Hgb 11.9 L, Hct 36.5 L, MCV 94.3, MCH 30.7, MCHC 32.6, RDW Std Deviation 44.6 H, RDW Coeff of Otis 12.8, Plt Count 355, MPV 10.1, Immature Gran % (Auto) 0.500, Neut % (Auto) 75.2 H, Lymph % (Auto) 15.6 L, Peach % (Auto) 6.2, Eos % (Auto) 2.0, Baso % (Auto) 0.5, Absolute Neuts (auto) 11.0 H, Absolute Lymphs (auto) 2.28, Nucleated RBC % 0 Current Medications Acetaminophen (Tylenol) 650 mg PO Q6H PRN PRN PRN Reason: Pain Score 1-3/Temp > 100.7 F Last Admin: 04/29/19 20:32 Dose: 650 mg Documented by: Albuterol/Ipratropium (Duoneb) 3 ml INHALATION Q6H.RT [facility] Last Admin: 04/30/19 04:06 Dose: 3 ml Documented by: Amitriptyline HCl (Elavil) 25 mg PO QHS [facility] Last Admin: 04/29/19 20:32 Dose: 25 mg Documented by: Baclofen (Lioresal) 10 mg PO QHS [facility] Last Admin: 04/29/19 20:32 Dose: 10 mg Documented by: Dextrose (D50w Syringe) 0 gm IV X1 PRN; Protocol PRN Reason: Hypoglycemia Enoxaparin Sodium (Lovenox) 40 mg SC DAILY [facility] Last Admin: 04/29/19 09:35 Dose: 40 mg Documented by: Fluticasone Propionate (Flonase Nasal [place]) 2 spray NASAL DAILY [facility] Last Admin: 04/29/19 09:42 Dose: 2 spray Documented by: Glucagon () 1 mg IM .X1 PRN PRN Reason: Hypoglycemia Ceftriaxone Sodium 2 gm/ (Sodium Chloride) 50 mls @ 100 mls/hr IV Q24 [facility] Last Infusion: 04/29/19 10:27 Dose: Infused Documented by: Azithromycin 500 mg/ Dextrose 255 mls @ 250 mls/hr IV Q24 [facility] Last Infusion: 04/29/19 10:47 Dose: Infused Documented by: Sodium Chloride () 250 mls @ 15 mls/hr IV .[id number] PRN PRN Reason: Saline Flush Morphine Sulfate (Ms Contin) 15 mg PO 0500,1700 [facility] Last Admin: 04/30/19 04:03 Dose: 15 mg Documented by: Ondansetron HCl (Zofran) 4 mg IV Q8H PRN PRN PRN Reason: NAUSEA/VOMITING Oxycodone HCl (Oxyir) 5 mg PO Q6H PRN PRN PRN Reason: Pain Score 1-10/10 Last Admin: 04/29/19 20:32 Dose: 5 mg Documented by: Pantoprazole Sodium (Protonix) 20 mg PO DAILY [facility] Last Admin: 04/29/19 09:35 Dose: 20 mg Documented by: Propranolol HCl (Inderal) 20 mg PO DAILY [facility] Last Admin: 04/29/19 12:10 Dose: Not Given Documented by: Pseudoephedrine HCl (Sudafed) 30 mg PO Q6H PRN PRN PRN Reason: Cough congestion Last Admin: 04/29/19 09:35 Dose: 30 mg Documented by: Sodium Chloride () 10 - 40 ml IV UD PRN PRN Reason: SALINE FLUSH Last Admin: 04/30/19 04:43 Dose: 10 ml Documented by: Medical Necessity - Tobacco Use Smoking Status: Current every day smoker Tobacco Use: Cigarettes Assessment/Plan All Active Problems (Last Updated 04/29/19 @ 08:06 by Colt Castillo MD) Pneumonia (Acute) Sepsis (Acute) This is a 63 years old female patient presented to the emergency because of productive cough with fever and she was found to have sepsis secondary to community-acquired pneumonia. #1 acute community-acquired pneumonia/sepsis: She is on day 3 of IV Rocephin and Zithromax. She has been afebrile, WBC is trending down. Tachycardia is improving, blood pressure stable. Nasal swab for influenza a and B were negative. Respiratory panel for viruses were negative as well. Blood and urine cultures are pending. Plan to continue same treatment, repeat CBC tomorrow morning, anticipate discharge home tomorrow. #2 sinus tachycardia: This is chronic and likely exacerbated by infection and sepsis. Heart rate is down to around 100, she is on propranolol. 2D echocardiogram revealed normal LV size and function, ejection fraction 65%, stage II diastolic dysfunction, normal heart valves. #3 SLE/fibromyalgia: Not on treatment for now, she is only on symptomatic treatment for pain with amitriptyline, MS Contin and Percocet as well as baclofen. #4 anxiety/depression: Currently, she is not on any medication. Recommend follow-up with PCP as outpatient. #5 chronic neck/back pain: Continue Ms. Contin twice daily and OxyIR PRN. #6 GERD: Continue PPI. #7 DVT prophylaxis: Subcu Lovenox. This note was generated with [employer] dictation software. It may contain incorrect words, spelling, and punctuation that were not noted in checking the note before signing. Code Visit Inpatient E&M: 87822 Subs Hosp L2
[2019-04-30] MEDS: oxyCODONE 5 MG Tablet PO ×3 (08:18→20:33)
[2019-04-30] MEDS: Acetaminophen 325 MG Tablet 650 MG PO ×3 (08:18→20:33)
[2019-04-30] MEDS: Fluticasone 0.05% 1 SPRAY NASAL.SRY 2 SPRAY NASAL (09:20)
[2019-04-30] MEDS: Enoxaparin 40 MG/0.4 ML Syringe SC (09:21)
[2019-04-30] MEDS: Pantoprazole Sodium 20 MG Tablet PO (09:21)
[2019-04-30] MEDS: Baclofen 10 MG Tablet PO (20:32)
[2019-04-30] MEDS: Amitriptyline 25 MG Tablet PO (20:32)
[2019-04-30] MEDS: Nicotine Polacrilex 2 MG GUM PO (20:33)
[2019-05-01] VITALS (7 sets, daily range): BP systolic 107–145; BP diastolic 60–101; PULSE 83–106; RESP 16–18; TEMP 36.6–36.8; O2SAT 96–98
[2019-05-01] MEDS: Ipratropium/Albuterol Sulfate 3 ML AMPUL.NEB INHALATION ×2 (02:00→07:12)
[2019-05-01] MEDS: Acetaminophen 325 MG Tablet 650 MG PO ×3 (02:32→13:26)
[2019-05-01] MEDS: oxyCODONE 5 MG Tablet PO ×3 (02:33→13:26)
[2019-05-01] MEDS: morphine SR 15 MG Tablet PO (04:02)
[2019-05-01 06:32] LABS: Absolute Lymphocyte Count 2.78 X10^3/uL (0.83-4.51); Absolute Neutrophil Count 4.9 X10^3/uL (2.0-7.7); Basophil# 0.08 X10^3/uL; Basophil% 0.9 % (0-1); Eosinophil# 0.41 X10^3/uL; Eosinophils% 4.6 % (0-5); Hematocrit 33.2 % (37-47); Hemoglobin 11.1 g/dL (12.0-15.0); Lymphocyte # 2.78 X10^3/ul (4.0); Lymphocyte % 31.1 % (19-41); Mean Corp Hgb Conc 33.4 g/dL (32-36); Mean Corpuscular Hgb 31.3 pg (27.0-32.0); Mean Corpuscular Volume 93.5 fL (81-99); Mean Platelet Vol. 9.5 fl (6.2-12.0); Monocyte# 0.69 X10^3/uL; Monocyte% 7.7 % (0-10); NRBC Flagged by Analyzer 0 % (0-5); Neutrophil # 4.87 X10^3/uL (2.7-7.7); Neutrophil % 54.4 % (47-70); Platelet Count 372 K/mm3 (150-450); RBC Distribution Width SD 44.5 fl (35.1-43.9); Red Blood Count 3.55 M/mm3 (4.2-5.4)
--- NOTE | 2019-05-01 08:17 | DCINST_ITS ---
- Discharge Diagnoses Current Active Problems: Current Active and Chronic Problems (Last Updated 04/29/19 @ 08:06 by Colt Castillo MD) Pneumonia (Acute) Sepsis (Acute) You will use the following diet at home:: Regular Your food should be the consistency of: Regular Discharge Activity: Return to Normal Activity Weight Bearing Status: Weight bearing as tolerated Call your doctor if you observe: Fever of 101 or Higher, Shortness of breath, Dizziness, Fainting spells, Swelling in the ankles, Chest pain, Increased palpitations (irregular heartbeat), Uncontrolled pain Instructions: What Is COPD? Allergies/Adverse Reactions: Allergies celecoxib [From Celebrex] Allergy (Mild, Verified 04/28/19 12:47) unknown Medications to take at Discharge baclofen 10 mg tablet 10 mg PO QHS 09/17/18 morphine ER 15 mg tablet,extended release 15 mg PO Q12H tab 09/17/18 omeprazole 20 mg capsule,delayed release 20 mg PO DAILY 09/17/18 oxycodone-acetaminophen 5 mg-325 mg tablet 1 tab PO BID PRN tab 09/17/18 Amitriptyline HCl [Elavil] 25 mg PO QHS 04/28/19 Propranolol HCl 20 mg PO PRN 04/29/19 levoFLOXacin tablet [Levaquin tablet] 750 mg PO DAILY #6 tab 05/01/19 predniSONE tablet 40 mg PO DAILY #10 tab 05/01/19 The following prescriptions were given: levoFLOXacin tablet [Levaquin tablet] 750 mg PO DAILY #6 tab Transmission Status: Pending to [facility] #69 predniSONE tablet 40 mg PO DAILY #10 tab Transmission Status: Pending to [facility] #69 Primary Care Physician: QUINN WEST [Other] Please follow up with your Primary Care Physician in: as scheduled. Test Results: Test results from this visit will be discussed in further detail at your follow- up appointment, if applicable.
[2019-05-01] MEDS: Propranolol 10 MG Tablet 20 MG PO (08:54)
[2019-05-01] MEDS: Pantoprazole Sodium 20 MG Tablet PO (08:54)
[2019-05-01] MEDS: Fluticasone 0.05% 1 SPRAY NASAL.SRY 2 SPRAY NASAL (08:55)
[2019-05-01] MEDS: 0.9% Saline Lock 10 ML Syringe IV (08:58)
[2019-05-01] MEDS: predniSONE 20 MG Tablet 40 MG PO (09:04)
--- NOTE | 2019-05-01 12:20 | PCM.DC.SUM ---
Discharge Date and Diagnosis - Problem List Patient Problems: Active and Suspected Problems (Last Updated 04/29/19 @ 08:06 by Colt Castillo MD) Pneumonia (Acute) Sepsis (Acute) Date of Admission: 04/28/19 Date of Discharge: 05/01/19 - Primary Discharge Diagnosis Active and Suspected Problems (Last Updated 04/29/19 @ 08:06 by Colt Castillo MD) #1 acute left basilar community-acquired pneumonia/sepsis.. #2 sinus tachycardia, chronic. - Secondary Discharge Diagnosis Chronic Problems (Last Updated 04/29/19 @ 08:06 by Colt Castillo MD) Hypertension (Chronic) Lupus (Chronic) GERD (gastroesophageal reflux disease) (Chronic) Anxiety and depression (Chronic) Asthma (Chronic) Back pain (Chronic) Migraine (Chronic) Fibromyalgia (Chronic) Arthritis (Chronic) Neck pain (Chronic) Hospital Course and Treatment Imaging Results: Clinical Impression(s) from Imaging Studies Chest X-Ray 04/28/19 13:32 IMPRESSION: Subsegmental atelectasis or infection in the posterior medial left base. Electronically Signed: Marcello Garcia MD at 14:49 EST , Service support , Operations: None Procedures: 2-D Echocardiogram, EKG Summary of Care Provided: Patient seen and examined on the day of discharge and appeared to be stable to be discharged home. Cough and shortness of breath continued to improve slowly. Her vital signs are stable. The patient is a 63 year old F patient presented to the emergency room because of productive cough and fever and she was found to have sepsis secondary to community-acquired pneumonia. Chest x-ray revealed questionable right basilar infiltrate. Patient did have significant leukocytosis on admission and she was tachycardic that was consistent with sepsis. Her lactic acid was normal. She was treated with IV Rocephin and Zithromax as well as bronchodilators and was started on prednisone on the day of discharge. Patient complained of hacking cough upon taking a deep breath or sometimes even talking. Respiratory panel for possible negative. Nasal swab for influenza a and B was negative. Urine culture showed no growth. Blood culture showed no growth in 48 hours. With IV antibiotic therapy and bronchodilators, patient symptoms improved and she remained afebrile for more than 48 hours. Leukocytosis resolved. Patient did have history of chronic sinus tachycardia which was exaggerated by sepsis. Heart rate went up to 120s but with IV antibiotic therapy, heart rate came down to around 100. Her blood pressure remained stable. Her TSH was recently normal. Because she was never evaluated for cyst sinus tachycardia, 2D echocardiogram done and revealed normal LV size and function, stage II diastolic dysfunction and structurally normal heart valves. Patient discharged home in a stable medical condition, discharged on Levaquin 750 mg p.o. daily for another 6 days to complete total of 10 days of treatment, discharged on prednisone 40 mg p.o. daily for 5 days, continued on her previous home medications without any changes, recommended to have lung function test as outpatient as she is probably have COPD, recommended follow-up with PCP as scheduled after tomorrow. Patient Problems: Active and Suspected Problems (Last Updated 04/29/19 @ 08:06 by Colt Castillo MD) Pneumonia (Acute) Sepsis (Acute) - Physical Exam Vitals/I&O's: Vital Signs Temp Pulse Resp BP Pulse Ox 98.3 F 83 18 107/60 98 05/01/19 08:47 05/01/19 11:47 05/01/19 08:47 05/01/19 08:47 05/01/19 08:47 Oxygen Delivery Method Room Air Weight: 144 lb 2.917 oz Body Mass Index (BMI) 24.7 Intake and Output for Last 24 Hours 04/29/19 04/30/19 05/01/19 23:59 23:59 23:59 Intake Total 4270 / 4270 1845 / 2245 690 / 690 Output Total 1700 / 1700 Balance 4270 / 4270 145 / 545 690 / 690 General: Alert, Oriented x3, Cooperative, No apparent distress HEENT: Atraumatic, PERRLA, EOMI, Normocephalic Oral: Moist Mucosa, No Gingival or Mucosal Lesions/ Ulcerations Neck: Supple, No JVD, Negative Carotid Bruits, Trachea Midline, Thyroid Normal Size and Texture Lungs: No wheeze, No rales, Diminished, Rhonchi Cardiovascular: Regular rate, Regular Rhythm, Normal S1, Normal S2, PMI Normal Abdomen: Bowel Sounds Present, Soft, Non Tender, Non-Distended, No Hepato-splenomegaly Extremities: No clubbing, No cyanosis, No edema Skin: No rashes, No breakdown Lymphatic: No Cervical, Supraclavicular, or Inguinal Adenopathy Neurological: Cranial nerves II-XII grossly intact, Neuro grossly intact Psych/Mental Status: Normal Affect, Appropriate Microbiology Past 72 Hours 04/28/19 16:20 Blood Culture (Wb) - Left Wrist Blood Culture - Preliminary No growth in 48 hours. 04/28/19 17:30 Urine, Clean Catch Urine Culture - Final Culture exhibits no growth. 04/28/19 17:00 Mucosa - Nose Respiratory Panel (PCR) - Final 04/28/19 13:51 Mucosa - Nose Influenza Types A,B Direct FA ([facility]) - Final Laboratory Results 05/01/19 06:15: WBC 9.0, RBC 3.55 L, Hgb 11.1 L, Hct 33.2 L, MCV 93.5, MCH 31.3, MCHC 33.4, RDW Std Deviation 44.5 H, RDW Coeff of Otis 13.0, Plt Count 372, MPV 9.5, Immature Gran % (Auto) 1.300 H, Neut % (Auto) 54.4, Lymph % (Auto) 31.1, [place] % (Auto) 7.7, Eos % (Auto) 4.6, Baso % (Auto) 0.9, Absolute Neuts (auto) 4.9, Absolute Lymphs (auto) 2.78, Nucleated RBC % 0 Current Medications Acetaminophen (Tylenol) 650 mg PO Q6H PRN PRN PRN Reason: Pain Score 1-3/Temp > 100.7 F Last Admin: 05/01/19 08:53 Dose: 650 mg Documented by: Albuterol/Ipratropium (Duoneb) 3 ml INHALATION Q6H.RT [facility] Last Admin: 05/01/19 07:12 Dose: 3 ml Documented by: Amitriptyline HCl (Elavil) 25 mg PO QHS [facility] Last Admin: 04/30/19 20:32 Dose: 25 mg Documented by: Baclofen (Lioresal) 10 mg PO QHS [facility] Last Admin: 04/30/19 20:32 Dose: 10 mg Documented by: Enoxaparin Sodium (Lovenox) 40 mg SC DAILY [facility] Last Admin: 05/01/19 08:53 Dose: Not Given Documented by: Fluticasone Propionate (Flonase Nasal [place]) 2 spray NASAL DAILY [facility] Last Admin: 05/01/19 08:55 Dose: 2 spray Documented by: Glucagon () 1 mg IM .X1 PRN PRN Reason: Hypoglycemia Ceftriaxone Sodium 2 gm/ (Sodium Chloride) 50 mls @ 100 mls/hr IV Q24 [facility] Last Infusion: 05/01/19 10:55 Dose: Infused Documented by: Azithromycin 500 mg/ Dextrose 255 mls @ 250 mls/hr IV Q24 [facility] Last Admin: 05/01/19 10:42 Dose: 250 mls/hr Documented by: Sodium Chloride () 250 mls @ 15 mls/hr IV .[id number] PRN PRN Reason: Saline Flush Dextrose (Dextrose 10%-Water) 250 mls @ 999 mls/hr IV X1 PRN; Protocol PRN Reason: HYPOGLYCEMIA Morphine Sulfate (Ms Contin) 15 mg PO 0500,1700 [facility] Last Admin: 05/01/19 04:02 Dose: 15 mg Documented by: Nicotine Polacrilex ([place] Nicotine (Bkc)) 2 mg PO Q2H PRN PRN PRN Reason: Nicotine Craving Last Admin: 04/30/19 20:33 Dose: 2 mg Documented by: Ondansetron HCl (Zofran) 4 mg IV Q8H PRN PRN PRN Reason: NAUSEA/VOMITING Oxycodone HCl (Oxyir) 5 mg PO Q6H PRN PRN PRN Reason: Pain Score 1-10/10 Last Admin: 05/01/19 08:52 Dose: 5 mg Documented by: Pantoprazole Sodium (Protonix) 20 mg PO DAILY [facility] Last Admin: 05/01/19 08:54 Dose: 20 mg Documented by: Prednisone () 40 mg PO DAILY@0800 [facility] Last Admin: 05/01/19 09:04 Dose: 40 mg Documented by: Propranolol HCl (Inderal) 20 mg PO DAILY [facility] Last Admin: 05/01/19 08:54 Dose: 20 mg Documented by: Pseudoephedrine HCl (Sudafed) 30 mg PO Q6H PRN PRN PRN Reason: Cough congestion Last Admin: 04/29/19 09:35 Dose: 30 mg Documented by: Sodium Chloride () 10 - 40 ml IV UD PRN PRN Reason: SALINE FLUSH Last Admin: 05/01/19 08:58 Dose: 10 ml Documented by: Discharge Activity: Return to Normal Activity Weight Bearing Status: Weight bearing as tolerated Call your doctor if you observe: Fever of 101 or Higher, Shortness of breath, Dizziness, Fainting spells, Swelling in the ankles, Chest pain, Increased palpitations (irregular heartbeat), Uncontrolled pain Home Medications: Medications to take at Discharge baclofen 10 mg tablet 10 mg PO QHS 09/17/18 morphine ER 15 mg tablet,extended release 15 mg PO Q12H tab 09/17/18 omeprazole 20 mg capsule,delayed release 20 mg PO DAILY 09/17/18 oxycodone-acetaminophen 5 mg-325 mg tablet 1 tab PO BID PRN tab 09/17/18 Amitriptyline HCl [Elavil] 25 mg PO QHS 04/28/19 Propranolol HCl 20 mg PO PRN 04/29/19 levoFLOXacin tablet [Levaquin tablet] 750 mg PO DAILY #6 tab 05/01/19 predniSONE tablet 40 mg PO DAILY #10 tab 05/01/19 Following Prescrptions Were Given to Patient: levoFLOXacin tablet [Levaquin tablet] 750 mg PO DAILY #6 tab Transmission Status: Received by [facility] #[email or web address] predniSONE tablet 40 mg PO DAILY #10 tab Transmission Status: Received by [facility] #69 Primary Care Physician: QUINN WEST [Other] Please follow up with your Primary Care Physician in: as scheduled. Patient Instructions: What Is COPD? Disposition: Home Minutes spent on discharge:: 28 Patient Condition:: Stable Medical Necessity - Tobacco Use Smoking Status: Current every day smoker Tobacco Use: Cigarettes Meaningful Use Info Meaningful Use Diagnoses (Choose all that apply): None applicable Code Visit Inpatient E&M: 41501 Disch Hosp
== END 2019-05-01 13:29 | disposition home or self-care (01) | DRG 195 ==
LOC: ED 15:28 → PCU 15:33
PROVIDERS: Admitting Provider Student in an Organized Health Care Education/Training Program; Emergency Provider Emergency Medicine; Referring Provider Student in an Organized Health Care Education/Training Program; Visit Provider Hospitalist
DX: J18.9 Pneumonia, unspecified organism (principal); M32.9 Systemic lupus erythematosus, unspecified; M79.7 Fibromyalgia; R00.0 Tachycardia, unspecified; I10 Essential (primary) hypertension; K21.9 Gastro-esophageal reflux disease without esophagitis; F41.9 Anxiety disorder, unspecified; F32.9 Major depressive disorder, single episode, unspecified; J45.909 Unspecified asthma, uncomplicated; G43.909 Migraine, unspecified, not intractable, without status migrainosus; M54.9 Dorsalgia, unspecified; M54.2 Cervicalgia; M19.90 Unspecified osteoarthritis, unspecified site; F17.210 Nicotine dependence, cigarettes, uncomplicated
CPT/HCPCS: 36415; 71046; 80048; 80053; 83605; 84484; 85025; 85610; 85730; 87040; 87086; 87633; 87804; 93005; 93306; 94640; 99285; J7030; J7040; A4216; J0696

== ENCOUNTER → 2019-07-04 11:20 | Outpatient (CLI) | payer OTHER, SELFPAY ==
[2019-04-28 16:08] VITALS: BMI 24.7
[2019-07-04 13:03] LABS: Amphetamine Urine VISTA NEGATIVE (<1000 ng/mL); Barbiturate Urine VISTA NEGATIVE (< 200 ng/mL); Benzodiazepine Urine VISTA NEGATIVE (< 200 ng/mL); Cocaine Urine VISTA NEGATIVE (< 300 ng/mL); Ecstacy Urine VISTA NEGATIVE (< 500 ng/mL); Methadone Urine VISTA NEGATIVE (< 300 ng/mL); PCP Urine VISTA NEGATIVE (< 25 ng/mL); THC Urine VISTA NEGATIVE (< 50 ng/mL); Vista UDS pH Range 6
== END ==
PROVIDERS: Referring Provider Anesthesiology Pain Medicine; Visit Provider Anesthesiology Pain Medicine
DX: F11.20 Opioid dependence, uncomplicated (principal)
CPT/HCPCS: 80307

== ENCOUNTER → 2021-04-19 10:26 | Outpatient (CLI) | payer MEDICARE, OTHER, SELFPAY ==
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
== END ==
PROVIDERS: PCP Physician Assistant; Referring Provider Anesthesiology Pain Medicine; Visit Provider Anesthesiology Pain Medicine
DX: M54.2 Cervicalgia (principal)
CPT/HCPCS: 72040